=== PATIENT | female | born 2000 | race African-American/Black ===

== ENCOUNTER 2020-05-04 11:38 | Emergency (ER) | payer MEDICAID ==
[~2020-05-04] VITALS: Ht 157.5 cm; Wt 46.5 kg
[2020-05-04 11:49] VITALS: BP 98/66
== END 2020-05-04 17:45 | disposition home or self-care (01) ==
LOC: ER 11:38
DX: K62.89 Other specified diseases of anus and rectum (principal)
CPT/HCPCS: 99281

== ENCOUNTER 2022-02-26 16:11 | Emergency (ER) | payer MEDICAID ==
[~2022-02-26] VITALS: Ht 157.5 cm; Wt 61.0 kg
[2022-02-26 16:25] VITALS: BP 108/72
[2022-02-26 19:23] LABS: HEMATOCRIT 41.2 % (36.0-48.0); HEMOGLOBIN 13.4 g/dL (12.0-16.0)
[2022-02-26 19:33] LABS: HCG SCREEN NEGATIVE
== END 2022-02-26 20:00 | disposition left against medical advice (07) ==
LOC: ER 16:11
DX: K62.5 Hemorrhage of anus and rectum (principal)
CPT/HCPCS: 36415; 84703; 85014; 85018; 99283